=== PATIENT | female | born 1955 | race Caucasian/White ===

== ENCOUNTER → 2018-11-13 | Outpatient (CLI) | payer OTHER | LOC: RAD 13:29 | DX: L40.50 Arthropathic psoriasis, unspecified (principal); M47.814 Spondylosis without myelopathy or radiculopathy, thoracic region; M43.22 Fusion of spine, cervical region; Z79.899 Other long term (current) drug therapy ==

== ENCOUNTER → 2020-08-08 | Outpatient (CLI) | payer OTHER | LOC: LAB 07:25 | PROVIDERS: ATTEND Nurse Practitioner | DX: R05 Cough (principal); R50.9 Fever, unspecified; R06.02 Shortness of breath; Z20.828 Contact with and (suspected) exposure to other viral communicable diseases ==